=== PATIENT | male | born 1995 | race Two or more races ===

== ENCOUNTER 2019-11-28 22:12 | Emergency (ER) | payer MEDICAID ==
[~2019-11-28] VITALS: Ht 190.5 cm; Wt 76.0 kg
[2019-11-29] MEDS ORDERED: KETOROLAC 30MG/ML VIAL IM ONE (00:30)
[2019-11-29] MEDS ORDERED: KETOROLAC 30MG/ML VIAL IV ONE (00:30)
[2019-11-29] MEDS ORDERED: VISCOUS LIDOCAINE 2% 15 ML UDC MM ONE (01:00)
[2019-11-29 01:40] VITALS: BP 121/74
== END 2019-11-29 01:40 | disposition home or self-care (01) ==
LOC: ER 22:12
DX: S13.4XXA Sprain of ligaments of cervical spine, initial encounter (principal); J02.9 Acute pharyngitis, unspecified; V74.6XXA Passenger on bus injured in collision with heavy transport vehicle or bus in traffic accident, initial encounter; Y93.89 Activity, other specified; Y92.488 Other paved roadways as the place of occurrence of the external cause
CPT/HCPCS: 70360; 72040; 96372; 99284; J1885